=== PATIENT | female | born 1975 | race Caucasian/White ===

== ENCOUNTER → 2023-12-02 17:06 | Outpatient (REF) | payer MEDICARE, OTHER, SELFPAY ==
[2023-12-02 19:10] LABS: ALT (SGPT) 25 U/L (0-35); AST (SGOT) 32 U/L (14-36); Alkaline Phosphatase 69 U/L (38-126); Blood Urea Nitrogen 21 mg/dl (7-17); Calcium 9.2 mg/dl (8.4-10.2); Carbon Dioxide 24 mmol/L (22-30); Chloride 109 mmol/L (98-107); Glucose 235 mg/dl (70-99); HDL Cholesterol 66 mg/dl; LDL Cholesterol, Calculated 86 mg/dl; Magnesium 2.6 mg/dl (1.6-2.3); Potassium 4.9 mmol/L (3.5-5.1); Sodium 141 mmol/L (135-145); Total Bilirubin 0.5 mg/dl (0.2-1.3); Total Cholesterol 194 mg/dl (50-199); Total Protein 7.1 g/dl (6.3-8.2); Triglyceride 213 mg/dl (10-149); Very Low Density Lipoprotein 42 mg/dl (0-30); eGFR > 60.00
[2023-12-02 19:30] LABS: TSH 1.39 uIU/ml (0.47-4.68)
[2023-12-03 10:51] LABS: Glycohemoglobin (HgbA1c) 8.9 % (4.0-5.6)
== END ==
LOC: REG 17:06
PROVIDERS: ATTENDING PHYSICIAN Internal Medicine Endocrinology, Diabetes & Metabolism; FAMILY PHYSICIAN Internal Medicine Cardiovascular Disease
DX: E10.65 Type 1 diabetes mellitus with hyperglycemia (principal); E04.1 Nontoxic single thyroid nodule; E78.2 Mixed hyperlipidemia
CPT/HCPCS: 36415; 80053; 80061; 83036; 83735; 84439; 84443

== ENCOUNTER → 2024-05-26 16:28 | Outpatient (REF) | payer MEDICARE, OTHER, SELFPAY ==
[2024-05-26 18:15] LABS: ALT (SGPT) 38 U/L (0-35); AST (SGOT) 40 U/L (14-36); Albumin 4.5 g/dl (3.5-5.0); Alkaline Phosphatase 101 U/L (38-126); Blood Urea Nitrogen 25 mg/dl (7-17); Calcium 9.7 mg/dl (8.4-10.2); Carbon Dioxide 32 mmol/L (22-30); Chloride 106 mmol/L (98-107); Glucose 184 mg/dl (70-99); HDL Cholesterol 64 mg/dl; LDL Cholesterol, Calculated 126 mg/dl; Potassium 4.9 mmol/L (3.5-5.1); Sodium 148 mmol/L (135-145); Total Bilirubin 0.6 mg/dl (0.2-1.3); Total Cholesterol 230 mg/dl (50-199); Total Protein 7.6 g/dl (6.3-8.2); Triglyceride 200 mg/dl (10-149); Very Low Density Lipoprotein 40 mg/dl (0-30); eGFR > 60.00
[2024-05-26 18:26] LABS: Free T4 0.72 ng/dl (0.78-2.19); Vitamin D, 25-OH*** 40.2 ng/mL (30-80)
[2024-05-26 18:40] LABS: TSH 2.01 uIU/ml (0.47-4.68)
[2024-05-27 08:54] LABS: Glycohemoglobin (HgbA1c) 9.2 % (4.0-5.6)
== END ==
LOC: REG 16:28
PROVIDERS: ATTENDING PHYSICIAN Internal Medicine Endocrinology, Diabetes & Metabolism; FAMILY PHYSICIAN Family Medicine
DX: E10.65 Type 1 diabetes mellitus with hyperglycemia (principal); E04.1 Nontoxic single thyroid nodule; E55.9 Vitamin D deficiency, unspecified
CPT/HCPCS: 36415; 80053; 80061; 82306; 83036; 84439; 84443

== ENCOUNTER → 2024-05-28 12:19 | Outpatient (REF) | payer MEDICARE, OTHER, SELFPAY ==
[2024-05-28 14:17] LABS: Microalbumin, Random Urine <0.6 mg/dl (0.6-1.7)
== END ==
LOC: REG 12:19
PROVIDERS: ATTENDING PHYSICIAN Internal Medicine Endocrinology, Diabetes & Metabolism; FAMILY PHYSICIAN Family Medicine
DX: E10.65 Type 1 diabetes mellitus with hyperglycemia (principal)
CPT/HCPCS: 82043

== ENCOUNTER → 2024-07-06 15:16 | Outpatient (REF) | payer MEDICARE, OTHER, SELFPAY ==
[2024-07-06 20:40] LABS: Urine Albumin Negative (Neg - Trace); Urine Bilirubin Negative (Negative); Urine Character Clear (Clear); Urine Color Yellow; Urine Glucose 3+ (Negative); Urine Ketone Negative (Negative); Urine Leukocyte Negative (Negative); Urine Nitrite Negative (Negative); Urine Occult Blood Negative (Negative); Urine Specific Gravity 1.015 (<1.030); Urine Urobilinogen Negative (Neg - 1+)
== END ==
LOC: REG 15:16
PROVIDERS: ATTENDING PHYSICIAN Physician Assistant Medical; FAMILY PHYSICIAN Family Medicine
DX: N39.0 Urinary tract infection, site not specified (principal)
CPT/HCPCS: 81003; 87086

== ENCOUNTER → 2024-10-02 11:00 | Outpatient (REF) | payer MEDICARE, OTHER, SELFPAY ==
[2024-10-02 12:21] LABS: Blood Urea Nitrogen 18 mg/dl (7-17); Calcium 9.2 mg/dl (8.4-10.2); Carbon Dioxide 28 mmol/L (22-30); Chloride 111 mmol/L (98-107); Glucose 166 mg/dl (70-99); Magnesium 2.4 mg/dl (1.6-2.3); Potassium 4.6 mmol/L (3.5-5.1); Sodium 145 mmol/L (135-145); eGFR > 60.00
== END ==
LOC: REG 11:00
PROVIDERS: ATTENDING PHYSICIAN Internal Medicine Cardiovascular Disease
DX: R00.0 Tachycardia, unspecified (principal)
CPT/HCPCS: 36415; 80048; 83735

== ENCOUNTER 2024-10-08 08:12 | Day surgery (SDC) | payer MEDICARE, OTHER, SELFPAY ==
[2024-10-08] VITALS (9 sets, daily range): BP systolic 95–124; BP diastolic 55–78; BMI 33.1
[2024-10-08] MEDS: LOW STRENGTH ASPIRIN 81 MG PO (08:47)
[2024-10-08 08:48] LABS: Glucose - Point of Care 253 mg/dl (70-99)
[2024-10-08 09:44] LABS: Hemoglobin 12.6 g/dL (12.0-16.0); Mean Corp Hgb Conc. 31.5 g/dL (33.0-37.0); Mean Corpuscular Hgb 29.1 pg (27.0-31.0); Mean Corpuscular Volume 92.4 fL (81.0-99.0); Mean Platelet Volume 10.6 fL (7.4-10.4); Platelet Count 234 10^3/uL (130-400); Red Blood Cell Count 4.33 10^6/uL (4.20-5.40); Red Cell Dist. Width 14.2 % (11.5-14.5); White Blood Cell Count 9.2 10^3/uL (4.8-10.8)
--- NOTE | 2024-10-08 10:23 | ITS.CL.CATH ---
[employer] - Catheterization
Cardiac Catheterization
Procedure Report:
LEFT HEART CATHETERIZATION
Date of Procedure: October 08, 2024
Referring: Dr. Pedro Venegas
PROCEDURES:
1. Left heart catheterization with coronary angiography
INDICATION: Ventricular tachycardia
ACCESS: Right radial artery, 6 [place] sheath
HEMODYNAMICS : (mmHg): Note the LV was obtained much later in the procedure then the initial aortic pressure)
AO (s/d) : 116/63, 84
LV (s/d) : 122/19
LVEDP : 23
CORONARY FINDINGS
DOMINANCE: Right
LEFT MAIN: The origin of the left main was cannulated with an AL-1 5 [place]an catheter. (JL3.5, JL4, and Macario did not easily cannulate the left main)
LEFT ANTERIOR DESCENDING: The LAD arises normally from the left main and runs in the anterior interventricular groove. The LAD is widely patent over its course
CIRCUMFLEX: The circumflex is small and gives rise to several small obtuse marginal branches. Only minor irregularities are noted
RIGHT CORONARY ARTERY: The right coronary artery is a moderate to large caliber dominant vessel that is widely patent over its course
VENTRICULOGRAPHY: Not done
RADIATION SUMMARY: Fluoro Time (min): 11.3, Dose (mGy): 515.0, DAP (Gy.cm2) : 35.1
Closure Device: TR band
CONCLUSIONS
1. Nonobstructive coronary disease. If future procedures are needed, the left main was cannulated with a 5 [place]an AL-1
RECOMMENDATIONS
1. Dr. Venegas to review
Copy to: Dr. Venegas
--- NOTE | 2024-10-08 10:54 | PTCARENOTE ---
pt returned from cath laboratory technician gave Lao muffin and soraya vikki, pt ate muffin then vomited gurgling and bringing up pieces of muffin and copious amount of mucus, suctioned, placed on o2 sat 96 degrees, lungs through out sound wet, dr Barber in to
eval, ordered x-ray, pending. continues to sounds a little wet. pt remains aaox3, making needs known, color pink pox 98, monitoring closely
[2024-10-08] MEDS: VENTOLIN NEBULES 2.5 MG INH (11:28)
--- NOTE | 2024-10-08 12:42 | PTCARENOTE ---
pt had breathing treatment and chest xray into eval pt resting comfortable on room air sat 96 hr 55 color pink, pt will go home as scheduled
== END 2024-10-08 13:19 | disposition home or self-care (01) ==
LOC: CATH 08:12
PROVIDERS: ATTENDING PHYSICIAN Internal Medicine Interventional Cardiology; FAMILY PHYSICIAN Family Medicine
DX: I47.20 Ventricular tachycardia, unspecified (principal); I25.10 Atherosclerotic heart disease of native coronary artery without angina pectoris; G71.00 Muscular dystrophy, unspecified; E10.8 Type 1 diabetes mellitus with unspecified complications; Z96.41 Presence of insulin pump (external) (internal); Z79.82 Long term (current) use of aspirin; Z79.4 Long term (current) use of insulin
CPT/HCPCS: 71045; 82962; 85027; 93458; 94640; C1894; Q9967

== ENCOUNTER → 2024-10-26 14:13 | Outpatient (REF) | payer MEDICARE, OTHER, SELFPAY | LOC: RCS 14:13 | PROVIDERS: ATTENDING PHYSICIAN Physician Assistant Medical; FAMILY PHYSICIAN Family Medicine | DX: I47.20 Ventricular tachycardia, unspecified (principal) | CPT/HCPCS: 93306 ==

== ENCOUNTER → 2025-05-03 12:06 | Outpatient (REF) | payer MEDICARE, OTHER, SELFPAY | LOC: REG 12:06 | PROVIDERS: ATTENDING PHYSICIAN Family Medicine | DX: Z11.1 Encounter for screening for respiratory tuberculosis (principal) | CPT/HCPCS: 36415; 86480 ==

== ENCOUNTER → 2025-07-11 14:53 | Outpatient (REF) | payer MEDICARE, OTHER, SELFPAY ==
[2025-07-11 16:38] LABS: ALT (SGPT) 33 U/L (0-35); AST (SGOT) 33 U/L (14-36); Albumin 3.9 g/dl (3.5-5.0); Alkaline Phosphatase 79 U/L (38-126); Blood Urea Nitrogen 22 mg/dl (7-17); Calcium 9.1 mg/dl (8.4-10.2); Carbon Dioxide 30 mmol/L (22-30); Chloride 108 mmol/L (98-107); Glucose 114 mg/dl (70-99); HDL Cholesterol 56 mg/dl; LDL Cholesterol, Calculated 128 mg/dl; Potassium 6.0 mmol/L (3.5-5.1); Sodium 144 mmol/L (135-145); Total Protein 6.8 g/dl (6.3-8.2); Very Low Density Lipoprotein 37 mg/dl (0-30); eGFR > 60.00
[2025-07-11 16:52] LABS: Vitamin D, 25-OH*** 29.9 ng/mL (30-80)
[2025-07-11 17:05] LABS: TSH 1.00 uIU/ml (0.47-4.68)
[2025-07-12 08:59] LABS: Glycohemoglobin (HgbA1c) 10.5 % (4.0-5.6)
== END ==
LOC: REG 14:53
PROVIDERS: Internal Medicine Geriatric Medicine; ATTENDING PHYSICIAN Internal Medicine Endocrinology, Diabetes & Metabolism
DX: E78.2 Mixed hyperlipidemia (principal); I10 Essential (primary) hypertension; M79.10 Myalgia, unspecified site; I50.9 Heart failure, unspecified; I25.10 Atherosclerotic heart disease of native coronary artery without angina pectoris; I11.9 Hypertensive heart disease without heart failure; I73.9 Peripheral vascular disease, unspecified; R26.89 Other abnormalities of gait and mobility; E55.9 Vitamin D deficiency, unspecified; G25.81 Restless legs syndrome; E61.1 Iron deficiency; Z13.89 Encounter for screening for other disorder; Z23 Encounter for immunization; E04.1 Nontoxic single thyroid nodule; E10.65 Type 1 diabetes mellitus with hyperglycemia; G71.11 Myotonic muscular dystrophy; Z46.81 Encounter for fitting and adjustment of insulin pump
CPT/HCPCS: 36415; 80053; 80061; 82306; 83036; 84443